=== PATIENT | male | born 1960 | race Caucasian/White ===

== ENCOUNTER 2025-05-19 13:54 | Emergency (ER) | payer OTHER, SELFPAY ==
[2025-05-19 14:01] VITALS: BP 114/72; PULSE 99; TEMP 36.5; O2SAT 97; BMI 33.9
--- NOTE | 2025-05-19 14:06 | ECG_ITS ---
[employer] Test Date: 2025-05-19 Pat Name: Yahir Sidhu Department: Room: Gender: Male Neurology Manager: : 1960 Requested By: Pilar Flanagan Order Number: [id number] Springer MD: Wolf Herrera M.D. Measurements Intervals [place] Rate: 108 P: 0 IA: 171 QRS: -65 QRSD: 116 T: 44 QT: 384 QTc: 517 Interpretive Statements SINUS TACHYCARDIA INFERIOR MYOCARDIAL INFARCTION , PROBABLY OLD [40+ ms Q WAVE AND/OR ST/T ABNORMALITY IN II/aVF] ANTEROLATERAL MYOCARDIAL INFARCTION , OF INDETERMINATE AGE [40+ ms Q WAVE IN I/aVL/V3-V6] Compared to ECG 08/31/2015 20:54:41 Sinus rhythm no longer present First degree AV block no longer present Myocardial infarct finding still present Electronically Signed On 05-23-2025 09:11:55 CDT by Wolf Herrera M.D. [email or web address]
--- OUTSIDE RECORDS SUMMARY | 2025-05-19 14:06 | XMS_ITS | Clinical Summary ---
Author Organization [facility] Address [address] [place] [address] Phone Care Team Providers Care Intellectual Property Paralegal Name Role Phone Non-Staff, Physician Primary Care Provider Unava ilable Allergies Active Allergy Reactions Criticality Noted Date Comments Iodinated Contrast Media Anaphylaxis High 09/18/2014 Venom-Honey Bee Anaphylaxis High 09/18/2014 Medications lacosamide (VIMPAT) 100 mg tabletIndicatio ns:Seizure disorder (CMS/HCC) Take 1.5 Tablet (150 mg) by mouth 2 times daily. 90 Tablet 5 6 Active hydroCHLOROthia zide 25 mg tablet Take 1 Tablet (25 mg) by mouth daily. 30 Tablet 5 Active amLODIPine (NORVASC) 10 mg tablet Take 1 Tablet (10 mg) by mouth daily. 30 Tablet 5 Active aspirin (ECOTRIN EC) 81 mg Tablet, Delayed Release (E.C.) Take 1 Tablet (81 mg) by mouth daily. 30 Tablet 5 Active lisinopriL (PRINIVIL) 40 mg tablet Take 1 Tablet (40 mg) by mouth daily. 30 Tablet 5 Active atorvastatin (LIPITOR) 40 mg tablet Take 1 Tablet (40 mg) by mouth daily at bedtime. 30 Tablet 5 Active metoprolol tartrate (LOPRESSOR) 50 mg tablet Take 1 Tablet (50 mg) by mouth 2 times daily. 60 Tablet 5 Active prazosin (MINIPRESS) 2 mg capsule Take 2 Capsules (4 mg) by mouth 2 times daily. 120 Capsule 5 Active acetaminophen (TYLENOL) 500 mg tablet Take 1 Tablet (500 mg) by mouth every 6 hours as needed for Pain, Mild, Pain, Moderate or Temperature (See admin instructions). 100 Tablet 5 Active citalopram (CeleXA) 10 mg tablet Take 1 Tablet (10 mg) by mouth daily. 30 Tablet 5 Active Active Problems Problem Noted Date Diagnosed Date Acute left-sided weakness 02/18/2025 Hemorrhagic cerebrovascular accident (CVA) 02/18 Laboratory test 02/18/2025 Hypertensive crisis 02/18/2025 Benign hypertension 02/18/2025 Hypertensive urgency 02/17/2025 Basal ganglia hemorrhage 02/17/2025 GARRETT on CPAP 02/17/2025 Smoker 02/17/2025 TBI (traumatic brain injury)-1986 03/08/2016 Chronic pain syndrome 03/08/2016 GARRETT (obstructive sleep apnea)-on CPAP 03/08/2016 DDD (degenerative disc disease), cervical 2015 Severe obesity (BMI 35.0-39.9) with comorbidity 03/08/2016 Type 2 diabetes mellitus 03/08/2016 HTN (hypertension) 03/08/2016 History of GA (myocardial infarction) 03/08/2016 History of stroke 03/08/2016 Mixed hyperlipidemia 03/08/2016 Seizure disorder 01/26/2016 Intractable chronic post-traumatic headache 05/2016 Fibromyalgia 01/26/2016 Type 2 diabetes mellitus without complication Essential hypertension Encounters Date Type Department Care Team Description 05/14/2025 External Device Data [facility] ABSTRACTION Provider, Abstract 05/07/2025 External Device Data [facility] ABSTRACTION Provider, Abstract 04/23/2025 External Device Data [facility] ABSTRACTION Provider, Abstract 04/11/2025 External Device Data [facility] ABSTRACTION Provider, Abstract 03/26/2025 External Device Data [facility] ABSTRACTION Provider, Abstract 03/26/2025 External Device Data [facility] ABSTRACTION Provider, Abstract 03/19/2025 External Device Data [facility] ABSTRACTION Provider, Abstract 03/01/2025 Telephone [facility] [address] [place] [phone] Reena Hardy Referral Request (Spiritual Support-Stroke Pathway) 02/27/2025 Telephone [facility] 4[facility] Medical [address] [place] [address] Shawn Snow Spiritual Care (Left patient a voice mail. ) 02/25/2025 Orders Only [facility] Neurosurgery [address] [place] [phone] Pedro Luis Ceja MD Traumatic brain injury with loss of consciousness, sequela (Primary Dx); Basal ganglia hemorrhage (CMS/HCC) 02/22/2025 4:09 PM CDT - 02/26/2025 9:45 AM CDT Hospital Encounter [facility] [address] [place] [phone] Samuel Woodard, Moses Blackmon MD Hemorrhagic cerebrovascular accident (CVA) (CMS/HCC) Discharge Disposition: Left Against Medical Advice 02/19/2025 External Device Data [facility] ABSTRACTION Provider, Abstract 02/19/2025 External Device Data [facility] ABSTRACTION Provider, Abstract 02/19/2025 External Device Data [facility] ABSTRACTION Provider, Abstract 02/18/2025 Travel 02/17/2025 6:57 PM CDT - 02/22/2025 3:46 PM CDT Hospital Encounter [facility] 6[facility] Neurology [address] [place] [phone] Latisha Nicholas MD Anand, MD Gabriela Lugo Mehul M, MD Raavi, MD Antolin Sierra Hejab, MD Basal ganglia hemorrhage (CMS/HCC) Discharge Disposition: Rehab Facility IP from Last 3 Months Family History Medical History Relation Name Comments Cancer Brother 1 Cancer Brother 2 Diabetes Father Colon Cancer Mother Diabetes Mother Diabetes Paternal Grandfather Cancer Sister 1 Cancer Sister 2 Relation Name Status Comments Brother 1 Brother 2 Alive Father Mother Paternal Grandfather Sister 1 Alive Sister 2 Alive Social History Tobacco Use Types Packs/Day Years Used Date Smoking Tobacco: Never Smokeless Tobacco: Never Tobacco Cessation:Counseling Given: Not Answered Alcohol Use Standard Drinks/Week Comments Yes 2 (1 standard drink = 0.6 oz pur e alcohol) Feeling Safe Answer Date Recorded Are you in a relationship wi th someone who hurts you emotionally and/or physically? No 02/22/2025 Food Insecurity Answer Date Recorded Patient needs follow up regardin 03/19/2025 Transportation Needs Answer Date Record ed Patient needs follow up regardin 03/19/2025 Housing Stability Answer Date Recorded Social/Environmental Concerns No concerns Utility Needs Answer Date Recorded Patient needs follow up regardin 03/19/2025 Sex and Gender Information Value Date Recorded Sex Assigned at Not on file Legal Sex Male 5:18 AM [employer] Gender Identity Not on file Sexual Orientation Not on file Last Filed Vital Signs Vital Sign Reading Time Taken Comments Blood Pressure 148/84 02/25/2025 9:03 PM CDT Pulse 66 02/25/2025 9:03 PM CDT Temperature 36.6 C (97.9 F) 02/25/2025 12:21 PM CDT Respiratory Rate 18 02/25/2025 12:2 1 PM CDT Oxygen Saturation 98% 02/25/2025 12: 21 PM CDT Inhaled Oxygen Concentration - - Weight 128.1 kg (282 lb 6.4 oz) 02/22/2025 4:25 PM CDT Height 182.9 cm (6') 02/22/2025 4:25 PM CDT Body Mass Index 38.3 02/22/2025 4:25 PM CDT Plan of Treatment Health Maintenance Due Date Last Done Comments DIABETES ANNUAL FOOT EXAM 1980 DIABETES MICROALBUMIN ANNUAL SCREEN 1980 FIT-DNA Q 3 years 2007 FIT/FOBT Q 1 year 2007 Flex Sig/CT Colonography Q 5 years 2007 COLORECTAL SCREENING 09/25/2019 09/25/2014 Colorectal Cancer Screening 09/25/2019 RSV VACCINE (60+ or ) (1 - Risk 60-74 years 1-dose series) 2022 INFLUENZA VACCINE (#1) 2024 09/26/2023, 2020 DIABETES HBA1C Q 6 MONTHS 08/20/2025 02/17/2025 DIABETES ANNUAL RETINAL EXAM 10/04/2025 10/04/2024 LDL CHOLESTEROL ANNUAL 02/18/2026 02/18/2025 DTAP/TDAP/TD VACCINES (5 - T d or Tdap) 07/17/2034 07/17/2024, 07/22/2009, 06/30/2009, Additional history exists ZOSTER VACCINE Completed 09/26/2023, 06/28/2022 Procedures Procedure Name Priority Date/Time Associated Diagnosis Comments BASIC METABOLIC PANEL Routine 02/25/2025 4:35 AM CDT COMPREHENSIVE METABOLIC PANEL Routine 02/23/2025 5:00 AM CDT CBC WITH DIFFERENTIAL Routine 02/23/2025 5:00 AM CDT RT ASSESS AND TREAT Routine 02/22/2025 4 :18 PM CDT XR SHOULDER 2+ VW LEFT Pending Discharge 02/21/2025 4:11 PM CDT XR HIP 2 OR 3 VIEWS LT Pending Discharge 02/21/2025 4:11 PM CDT CBC WITH DIFFERENTIAL Routine 02/20/2025 8:39 AM CDT POC GLUCOSE Routine 02/19/2025 11:57 AM CDT POC GLUCOSE Routine 02/19/2025 7:41 AM CDT BASIC METABOLIC PANEL Routine 02/19/2025 4:52 AM CDT CBC WITH DIFFERENTIAL Routine 02/19/2025 4:52 AM CDT POC GLUCOSE Routine 02/19/2025 4:05 AM CDT POC GLUCOSE Routine 02/18/2025 7:54 PM CDT POC GLUCOSE Routine 02/18/2025 4:18 PM CDT POC GLUCOSE Routine 02/18/2025 11:25 AM CDT POC GLUCOSE Routine 02/18/2025 8:[address] HEAD WO CONTRAST Stat 02/18/2025 8 :04 AM CDT LIPID PANEL Routine 02/18/2025 4:21 AM CDT BASIC METABOLIC PANEL Routine 02/18/2025 4:21 AM CDT CBC WITH DIFFERENTIAL Routine 02/18/2025 4:21 AM CDT POC GLUCOSE Routine 02/18/2025 4:19 AM CDT POC GLUCOSE Routine 02/18/2025 12:[address] HEAD WO CONTRAST Routine 02/18/2025 1 2:15 AM CDT DRUG SCREEN, URINE Routine 02/17/2025 9: 33 PM CDT VERIFICATION BLOOD GROUP Stat 02/17/2025 9:10 PM CDT Laboratory test POC GLUCOSE Routine 02/17/2025 8:10 PM CDT EKG 12-LEAD Stat 02/17/2025 7:45 PM CDT CTA HEAD AND NECK W AND/OR WO CONTRAST Stat 02/17/2025 7:28 PM CDT TYPE AND SCREEN Stat 02/17/2025 7:27 PM CDT HEMOGLOBIN A1C Routine 02/17/2025 7:09 PM CDT PTT Stat 02/17/2025 7:09 PM CDT PROTIME-INR Stat 02/17/2025 7:09 PM CDT COMPREHENSIVE METABOLIC PANEL Stat 02/17/2025 7:09 PM CDT CBC WITH DIFFERENTIAL Stat 02/17/2025 7:09 PM CDT CRITICAL CARE Routine 02/17/2025 6:55 PM CDT from Last 3 Months Results * (ABNORMAL) BASIC METABOLIC PANEL (02/25/2025 4:35 AM CDT) Only the most recent of3 resultswithin the time period is included. SODIUM 142 136 - 145 mmol/L 02/25/2025 8:[address] [facility] POTASSIUM 3.7 3.4 - 4.5 mmol/L 02/25/2025 8:41 AM [facility] CHLORIDE 107 98 - 107 mmol/L 02/25/2025 8:41 AM [facility] CO2 26 22 - 29 mmol/L 02/25/2025 8:41 AM [facility] CALCIUM 8.9 8.6 - 10.0 mg/dL 02/25/2025 8:41 AM [facility] BUN 26(H) 8 - 23 mg/dL 02/25/2025 8:41 AM [facility] CREATININE 1.25(H) 0.67 - 1.17 mg/dL 02/25/2025 8:41 AM [facility] GLUCOSE 115(H) 74 - 99 mg/dL 02/25/2025 8:41 AM [facility] GFR >60 >=60 mL/min/1.7 3 sq meter 02/25/2025 8:41 AM [facility] Comment:eGFR calculated with 2020 CKD-EPI equation. Vegetarian diet, extremely high or low muscle mass, and may affect results. Cystatin C with Glomerular Filtration Rate is a suitable alternative for these patients. ANION GAP 9 9 - 20 mmol/L 02/25/2025 8:41 AM [facility] Blood BLOOD SPECIMEN / Unknown Venipuncture / Unknown 02/25/2025 4:35 AM CDT 02/25/2025 8:07 AM CDT us Moses Baker Jr., MD CHEMISTRY ORDERAB LES Final Result [facility] CLIA #[id number] [address] [place] [address] * (ABNORMAL) CBC WITH DIFFERENTIAL (02/23/2025 5:00 AM CDT) Only the most recent of5 resultswithin the time period is included. WBC 10.9(H) 4.8 - 10.8 K/uL 02/23/2025 9:04 AM CDT [facility] RBC 5.06 4.60 - 6.20 M/uL 02/23/2025 9:04 AM CDT [facility] HEMOGLOBIN 14.9 14.0 - 18.0 g/dL 02/23/2025 9:04 AM CDT [facility] HEMATOCRIT 45.0 41.0 - 53.0 % 02/23/2025 9:04 AM CDT [facility] MCV 88.9 84.0 - 103.0 fL 02/23/2025 9:04 AM CDT [facility] MCH 29.4 27.0 - 34.0 pg 02/23/2025 9:04 AM CDT [facility] MCHC 33.1 30.0 - 35.0 g/dL 02/23/2025 9:04 AM CDT [facility] RDW 13.2 11.0 - 14.5 % 02/23/2025 9:04 AM CDT [facility] RDW-STDEV 43.3 37.0 - 54.0 fL 02/23/2025 9:04 AM CDT [facility] PLATELETS 276 140 - 440 K/uL 02/23/2025 9:04 AM CDT [facility] MPV 10.7 8.9 - 12.8 fL 02/23/2025 9:04 AM CDT [facility] NEUTROPHILS 60 42 - 75 % 02/23/2025 9:04 AM T [facility] LYMPHOCYTES 27 24 - 44 % 02/23/2025 9:04 AM CDT [facility] MONOCYTES 9 2 - 10 % 02/23/2025 9:04 AM CDT [facility] EOSINOPHILS 3 0 - 7 % 02/23/2025 9:04 AM T [facility] BASOPHILS 1 0 - 1 % 02/23/2025 9:04 AM CDT [facility] IMMATURE GRANULOCYTES 0 0 - 2 % 02/23/2025 9:04 AM T [facility] NEUTROPHIL ABSOLUTE 6.51 2.00 - 8.00 K/uL 02/23/2025 9:04 AM T [facility] LYMPHOCYTE ABSOLUTE 2.92 1.20 - 4.00 K/uL 02/23/2025 9:04 AM T [facility] MONOCYTE ABSOLUTE 0.98(H) 0.10 - 0.60 K/uL 02/23/2025 9:04 AM T [facility] EOSINOPHIL ABSOLUTE 0.34 0.00 - 0.70 K/uL 02/23/2025 9:04 AM T [facility] BASOPHILS ABSOLUTE 0.13 0.00 - 0.20 K/uL 02/23/2025 9:04 AM T [facility] IMMATURE GRANULOCYTES ABSOLUTE 0.04 0.00 - 0.10 K/uL 02/23/2025 9:04 AM [facility] Blood Venipuncture / Unknown 02/23/2025 5:00 AM CDT 02/23/2025 8:55 AM CDT us Malu Hernandez ANP HEMATOLOGY ORDERABLES Lucita rosenberg Result [facility] CLIA # [id number] [address] [address] [place] [address] * (ABNORMAL) COMPREHENSIVE METABOLIC PANEL (02/23/2025 5:00 AM [facility]) Only the most recent of2 resultswithin the time period is included. [facility] SODIUM 137 136 - 145 mmol/L 02/23/2025 9:23 AM [facility] POTASSIUM 3.7 3.5 - 5.1 mmol/L 02/23/2025 9:23 AM [facility] CHLORIDE 104 98 - 107 mmol/L 02/23/2025 9:23 AM [facility] CO2 21(L) 22 - 29 mmol/L 02/23/2025 9:23 AM [facility] CALCIUM 9.0 8.8 - 10.2 mg/dL 02/23/2025 9:23 AM [facility] BUN 39(H) 8 - 23 mg/dL 02/23/2025 9:23 AM [facility] CREATININE 1.44(H) 0.67 - 1.17 mg/dL 02/23/2025 9:23 AM [facility] GLUCOSE 125(H) 74 - 99 mg/dL 02/23/2025 9:23 AM [facility] TOTAL PROTEIN 6.7 6.4 - 8.3 g/dL 02/23/2025 9:23 AM [facility] ALBUMIN 3.8 3.5 - 5.2 g/dL 02/23/2025 9:23 AM [facility] BILIRUBIN TOTAL 0.3 0.2 - 1.0 mg/dL 02/23/2025 9:23 AM [facility] ALKALINE PHOSPHATASE 112 40 - 129 U/L 02/23/2025 9:23 AM [facility] AST 12 10 - 50 U/L 02/23/2025 9:23 AM [facility] ALT 16 <=50 U/L 02/23/2025 9:23 AM [facility] GFR 55(L) >=60 mL/min/1. 73 sq meter 02/23/2025 9:23 AM [facility] Comment:eGFR calculated with 2020 CKD-EPI equation. Vegetarian diet, extremely high or low muscle mass, and may affect results. Cystatin C with Glomerular Filtration Rate is a suitable alternative for these patients. ANION GAP 12 9 - 20 mmol/L 02/23/2025 9:23 AM CDT [facility] Blood Venipuncture / Unknown 02/23/2025 5:00 AM CDT 02/23/2025 8:55 AM CDT us Malu Hernandez ANP CHEMISTRY ORDERABLES Final Result [facility] CLIA # [id number] [address] [place] [id number] * XR SHOULDER 2+ VW LEFT (02/21/2025 4:11 PM CDT) Anatomical Region Laterality Modality Upper Extremity Computed Radiogr aphy 02/21/2025 4:11 PM CDT Impressions 02/21/2025 4:31 PM CDT IMPRESSION: Negative for an acute bony abnormality. Narrative 02/21/2025 4:31 PM CDT EXAM: XR SHOULDER 2+ VW LEFT DATE/TIME OF EXAM: 02/21/2025 4:11 PM REASON FOR EXAM: Fall DIAGNOSIS: Hemorrhagic cerebrovascular accident (CVA) (CMS/HCC); Acute left-sided weakness; Laboratory test; Benign hypertension COMPARISON: None. FINDINGS: No evidence of a fracture, dislocation, or acute joint space abnormality. The acromioclavicular and coracoclavicular distances appear anatomic. No significant arthrosis radiographically. Procedure Note Yo Wooten MD - 02/21/2025 EXAM: XR SHOULDER 2+ VW LEFT DATE/TIME OF EXAM: 02/21/2025 4:11 PM REASON FOR EXAM: Fall DIAGNOSIS: Hemorrhagic cerebrovascular accident (CVA) (CMS/HCC); Acute left-sided weakness; Laboratory test; Benign hypertension COMPARISON: None. FINDINGS: No evidence of a fracture, dislocation, or acute joint space abnormality. The acromioclavicular and coracoclavicular distances appear anatomic. No significant arthrosis radiographically. IMPRESSION: Negative for an acute bony abnormality. us Pedrito Dangelo MD DIAGNOSTIC IMAGING ORDERABLES Fi nal Result * XR HIP 2 OR 3 VIEWS LT (02/21/2025 4:11 PM CDT) Anatomical Region Laterality Modality Lower Extremity Left Computed Radiogr aphy 02/21/2025 4:11 PM CDT Impressions 02/21/2025 4:30 PM CDT IMPRESSION: Negative for an acute bony abnormality. Narrative 02/21/2025 4:30 PM CDT EXAM: XR HIP 2 OR 3 VIEWS LT DATE/TIME OF EXAM: 02/21/2025 4:11 PM REASON FOR EXAM: Fall DIAGNOSIS: Hemorrhagic cerebrovascular accident (CVA) (CMS/HCC); Acute left-sided weakness; Laboratory test; Benign hypertension COMPARISON: None FINDINGS: No radiographic evidence of an acute fracture, subluxation, dislocation, or destructive osseous lesion. Relatively mild left hip osteoarthritis with no significant joint space narrowing. The femoral head is normal in contour. Soft tissues are grossly unremarkable. No suspicious radiodense foreign bodies identified. Procedure Note Yo Wooten MD - 02/21/2025 EXAM: XR HIP 2 OR 3 VIEWS LT DATE/TIME OF EXAM: 02/21/2025 4:11 PM REASON FOR EXAM: Fall DIAGNOSIS: Hemorrhagic cerebrovascular accident (CVA) (CMS/HCC); Acute left-sided weakness; Laboratory test; Benign hypertension COMPARISON: None FINDINGS: No radiographic evidence of an acute fracture, subluxation, dislocation, or destructive osseous lesion. Relatively mild left hip osteoarthritis with no significant joint space narrowing. The femoral head is normal in contour. Soft tissues are grossly unremarkable. No suspicious radiodense foreign bodies identified. IMPRESSION: Negative for an acute bony abnormality. us Pedrito Dangelo MD DIAGNOSTIC IMAGING ORDERABLES Fi nal Result * (ABNORMAL) POC GLUCOSE (02/19/2025 11:57 AM CDT) Only the most recent of10 resultswithin the time period is included. GLUCOSE POC 107(H) 74 - 99 mg/dL 02/19/2025 11:57 AM CDT [facility] SPECIMEN SOURCE, GLUCOSE POC Capillary 02/19/2025 11:57 AM CDT [facility] Blood, whole 02/19/2025 11:5 7 AM CDT 02/19/2025 12:44 PM CDT Mariela Rodriguez MD POINT OF CARE TESTING Final Res ult [facility] CLIA # [id number] [address] [place] [address] * CT HEAD WO CONTRAST (02/18/2025 8:04 AM CDT) Only the most recent of2 resultswithin the time period is included. Anatomical Region Laterality Modality Head Computed Tomogra phy 02/18/2025 7:53 AM CDT Impressions 02/18/2025 8:28 AM CDT IMPRESSION: No interval detrimental change. Narrative 02/18/2025 8:28 AM CDT EXAM: CT HEAD WO CONTRAST DATE/TIME OF EXAM: 02/18/2025 8:04 AM REASON FOR STUDY: Mental status change, unknown cause DIAGNOSIS: Hemorrhagic cerebrovascular accident (CVA) (CMS/HCC); Acute left-sided weakness; Laboratory test; Benign hypertension COMPARISON: Same-day TECHNIQUE: CT head performed without contrast. FINDINGS: Similar appearance of the right frontal parenchymal hemorrhage centered in the right lentiform nucleus compared to prior study. Similar appearing locoregional mass effect and mild vasogenic edema. No midline shift or hydrocephalus. Procedure Note Kayla Lozada MD - 02/18/2025 EXAM: CT HEAD WO CONTRAST DATE/TIME OF EXAM: 02/18/2025 8:04 AM REASON FOR STUDY: Mental status change, unknown cause DIAGNOSIS: Hemorrhagic cerebrovascular accident (CVA) (CMS/HCC); Acute left-sided weakness; Laboratory test; Benign hypertension COMPARISON: Same-day TECHNIQUE: CT head performed without contrast. FINDINGS: Similar appearance of the right frontal parenchymal hemorrhage centered in the right lentiform nucleus compared to prior study. Similar appearing locoregional mass effect and mild vasogenic edema. No midline shift or hydrocephalus. IMPRESSION: No interval detrimental change. us Olvin Ochoa MD CT ORDERABLES Final Result * (ABNORMAL) LIPID PANEL (02/18/2025 4:21 AM CDT) CHOLESTEROL 167 <200 mg/dL 02/18/2025 10:47 AM CDT [facility] TRIGLYCERIDE 93 <150 mg/dL 02/18/2025 10:47 AM CDT [facility] HDL 32(L) 40 - 59 mg/dL 02/18/2025 10:47 AM T [facility] LDL CALCULATED 116(H) <100 mg/dL 02/18/2025 10:47 AM T [facility] NON-HDL CHOLESTEROL 135(H) <130 mg/dL 02/18/2025 10:47 AM T [facility] Blood Venipuncture / Unknown 02/18/2025 4:21 AM CDT 02/18/2025 4:30 AM CDT Narrative [facility] - 02/18/2025 10:47 AM CDT TOTAL CHOLESTEROL mg/dL Desirable <200 Borderline high 200-239 High >=240 TRIGLYCERIDES mg/dL Normal <150 Borderline high 150-199 High 200-499 Very high >=500 HDL CHOLESTEROL mg/dL Low <40 Normal 40-59 Desirable >=60 NON HDL CHOLESTEROL mg/dL Optimal <130 Near Optimal 130-159 Borderline High 160-189 Very High >=190 CALCULATED LDL mg/dL LDL <70, OPTIMAL if have Atherosclerotic cardiovascular disease (ASCVD) or intermediate or higher (>7.5%) 10 year risk of ASCVD including most adults with diabetes. LDL <100, Optimal in adult patients with low (<7.5%) 10 year ASCVD risk LDL 100-160, Suboptimal LDL >160, High LDL >190, Very high LDL calculated using the Friedewald equation. ATPIII Guidelines Reference Ranges for Lipid Panels (NCEP/AMA) . us Olvin Ochoa MD CHEMISTRY ORDERABLES Final Resu lt [facility] CLIA # [id number] [facility] [address] [place] [address] * (ABNORMAL) DRUG SCREEN, URINE (02/17/2025 9:33 PM CDT) [facility] AMPHETAMINE QUAL, URINE Negative Negative 02/17/2025 10:30 PM CDT [facility] BARBITURATE QUAL, URINE Negative Negative 02/17/2025 10:30 PM CDT [facility] BENZODIAZEPINE QUAL, URINE Negative Negative 02/17/2025 10:30 PM CDT [facility] COCAINE QUAL URINE Negative Negative 02/17/2025 10:30 PM CDT [facility] OPIATE QUAL, URINE Negative Negative 02/17/2025 10:30 PM CDT [facility] CANNABINOIDS QUAL, URINE Presumptive Positive(A) Negative 02/17/2025 10:30 PM CDT [facility] OXYCODONE QUAL, URINE Negative Negative 02/17/2025 10:30 PM CDT [facility] METHADONE QUAL, URINE Negative Negative 02/17/2025 10:30 PM CDT [facility] FENTANYL QUAL, URINE Negative Negative 02/17/2025 10:30 PM CDT [facility] CREATININE, URINE 30.9(L) 40.0 - 278.0 mg/dL 02/17/2025 10:30 PM CDT [facility] Comment:Reference Range vari es with fluid intake and diet. Urine URINE SPECIMEN OBTAINED BY CLEAN CATCH PROCEDURE / Unknown Collection / Unknown 02/17/2025 9:33 PM CDT 02/17/2025 9:46 PM CDT Narrative [facility] - 02/17/2025 10:30 PM CDT This test is a qualitative screen. The presumptive positive results should not be used for legal purposes. If confirmation of results is desired, the lab must be contacted without delay. Drug Ref. Range Screening Threshold Amphetamines Negative 500 ng/mL Barbiturates Negative 200 ng/mL Benzodiazepines Negative 100 ng/mL Cannabinoids Negative 50 ng/mL Cocaine Metabolite Negative 300 ng/mL Opiate Negative 300 ng/mL Oxycodone Negative 100 ng/mL Methadone Negative 300 ng/mL Fentanyl Negative 5 ng/mL Amanda Chaves NP URINE ORDERABLES Final Result Performing Organization Address [facility]/ZIP Co de Phone Number [facility] CLIA # [id number] [facility] [place] [address] * VERIFICATION BLOOD GROUP (02/17/2025 9:10 PM CDT) ABO GROUP O 02/17/2025 10:[address] [facility] RH (D) TYPE Negative 02/17/2025 10:[address] [facility] Blood Venipuncture / Unknown 02/17/2025 9:10 PM CDT 02/17/2025 9:23 PM CDT Protocol [facility] Gregoria BARNES BLOOD B[facility] ORDERABLES Final Result Performing Organization Address [facility] Co de Phone Number [id number] [address] [place] [address], * EKG 12-LEAD (02/17/2025 7:45 PM CDT) 02/17/2025 7:45 PM CDT Narrative INTERFACE SYSTEM - 02/18/2025 6:53 [place] [address] Test Date: 2025-02-17 Pat Name: INDIGO RODRIGUEZ Department: 11 Room: Gender: Director Of Cath Lab: [id number] : 1960 Requested By: Order Number: [id number] Gian MD: Haley Sandoval Measurements Intervals [place] Rate: 106 P: 44 IA: 186 QRS: 15 QRSD: 100 T: 89 QT: 362 QTc: 480 Interpretive Statements Sinus tachycardia Possible Left atrial enlargement Minimal voltage criteria for LVH, may be normal variant ( Luke product ) Nonspecific T wave abnormality Abnormal ECG Electronically Signed On 02-18-2025 6:53:55 CDT by Haley Sandoval Procedure Note Provider, Historical - 02/18/2025 [facility] [address] [place] [address] Test Date: 2025-02-17 Pat Name: INDIGO RODRIGUEZ Department: 11 Room: Gender: Director Of Cath Lab: [id number] : 1960 Requested By: Order Number: [id number] Reading MD: Haley Sandoval Measurements Intervals [place] Rate: 106 P: 44 IA: 186 QRS: 15 QRSD: 100 T: 89 QT: 362 QTc: 480 Interpretive Statements Sinus tachycardia Possible Left atrial enlargement Minimal voltage criteria for LVH, may be normal variant ( Luke product) Nonspecific T wave abnormality Abnormal ECG Electronically Signed On 02-18-2025 6:53:55 CDT by Haley Sandoval us Latisha Nicholas MD ECG ORDERABLES Final Result INTERFACE SYSTEM Refer to clinic/hospital department * CTA HEAD AND NECK W AND/OR WO CONTRAST (02/17/2025 7:28 PM CDT) Anatomical Region Laterality Modality Head Computed Tomogra phy 02/17/2025 7:09 PM CDT Impressions 02/18/2025 6:26 AM CDT IMPRESSION: 1. Right frontal parenchymal hemorrhage centered in the right lentiform nucleus, measuring 4.6 x 2.3 x 3.4 cm. Mild surrounding vasogenic edema. No midline shift or hydrocephalus. Recommend follow-up brain MRI with and without contrast to assess for underlying lesion. 2. No evidence of hemodynamically significant stenosis within the cervical internal carotid arteries based on NASCET criteria. 3. No large vessel intracranial arterial occlusion. No significant stenosis or occlusion of the major intracranial arterial vasculature. Narrative 02/18/2025 6:26 AM CDT EXAM: CTA HEAD AND NECK W AND/OR WO CONTRAST DATE/TIME OF EXAM: 02/17/2025 7:28 PM REASON FOR STUDY: Neuro deficit, acute, stroke suspected DIAGNOSIS: Hemorrhagic cerebrovascular accident (CVA) (CMS/HCC); Acute left-sided weakness COMPARISON: TECHNIQUE: CT performed of the head without contrast. CT angiography was performed of the head and neck following the administration of intravenous contrast. Images were reformatted and 3-D MIP images were provided. CT perfusion performed after the administration of intravenous contrast. CONTRAST: IOPAMIDOL 61 % INTRAVENOUS SOLUTION (MULTI-DOSE BULK PACK) Given:225 mL FINDINGS: CT head: Right frontal parenchymal hemorrhage centered in the right lentiform nucleus, measuring 4.6 x 2.3 x 3.4 cm. Mild surrounding vasogenic edema. Locoregional mass effect. No midline shift or hydrocephalus. No mastoid effusion. Mild left maxillary sinus mucosal thickening. No paranasal sinus fluid level. No calvarial fracture. No sizable scalp hematoma. CTA neck: AORTIC ARCH ATHEROSCLEROSIS GRADE: none AORTIC ARCH: three vessel SUBCLAVIAN ARTERIES: No significant stenosis or occlusion. CERVICAL VERTEBRAL ARTERIES: Patent extracranial segments. No dissection. RIGHT CCA AND CERVICAL ICA: Mild atherosclerotic disease. No stenosis or occlusion. No dissection. LEFT CCA AND CERVICAL ICA: Mild atherosclerotic disease. No stenosis or occlusion. No dissection. CT angiography head: Anterior Circulation: Mild atherosclerotic disease in the parasellar ICAs bilaterally. No significant stenosis or occlusion. No aneurysm. No evidence of active bleeding in the region of parenchymal hemorrhage. Posterior Circulation: Atherosclerotic disease of the intradural vertebral arteries bilaterally without occlusion. No significant stenosis or occlusion. No aneurysm. Expected enhancement major dural venous sinuses. Other: Soft Tissue Neck: No cervical adenopathy. Cervical Spine: No acute fracture. Lung Apices: The included lung apices appear clear. Poor dentition with numerous dental cavities and periapical lucencies. Procedure Note Kayla Lozada MD - 02/18/2025 EXAM: CTA HEAD AND NECK W AND/OR WO CONTRAST DATE/TIME OF EXAM: 02/17/2025 7:28 PM REASON FOR STUDY: Neuro deficit, acute, stroke suspected DIAGNOSIS: Hemorrhagic cerebrovascular accident (CVA) (CMS/HCC); Acute left-sided weakness COMPARISON: TECHNIQUE: CT performed of the head without contrast. CT angiography was performed of the head and neck following the administration of intravenous contrast. Images were reformatted and 3-D MIP images were provided. CT perfusion performed after the administration of intravenous contrast. CONTRAST: IOPAMIDOL 61 % INTRAVENOUS SOLUTION (MULTI-DOSE BULK PACK) Given:225 mL FINDINGS: CT head: Right frontal parenchymal hemorrhage centered in the right lentiform nucleus, measuring 4.6 x 2.3 x 3.4 cm. Mild surrounding vasogenic edema. Locoregional mass effect. No midline shift or hydrocephalus. No mastoid effusion. Mild left maxillary sinus mucosal thickening. No paranasal sinus fluid level. No calvarial fracture. No sizable scalp hematoma. CTA neck: AORTIC ARCH ATHEROSCLEROSIS GRADE: none AORTIC ARCH: three vessel SUBCLAVIAN ARTERIES: No significant stenosis or occlusion. CERVICAL VERTEBRAL ARTERIES: Patent extracranial segments. No dissection. RIGHT CCA AND CERVICAL ICA: Mild atherosclerotic disease. No stenosis or occlusion. No dissection. LEFT CCA AND CERVICAL ICA: Mild atherosclerotic disease. No stenosis or occlusion. No dissection. CT angiography head: Anterior Circulation: Mild atherosclerotic disease in the parasellar ICAs bilaterally. No significant stenosis or occlusion. No aneurysm. No evidence of active bleeding in the region of parenchymal hemorrhage. Posterior Circulation: Atherosclerotic disease of the intradural vertebral arteries bilaterally without occlusion. No significant stenosis or occlusion. No aneurysm. Expected enhancement major dural venous sinuses. Other: Soft Tissue Neck: No cervical adenopathy. Cervical Spine: No acute fracture. Lung Apices: The included lung apices appear clear. Poor dentition with numerous dental cavities and periapical lucencies. IMPRESSION: 1. Right frontal parenchymal hemorrhage centered in the right lentiform nucleus, measuring 4.6 x 2.3 x 3.4 cm. Mild surrounding vasogenic edema. No midline shift or hydrocephalus. Recommend follow-up brain MRI with and without contrast to assess for underlying lesion. 2. No evidence of hemodynamically significant stenosis within the cervical internal carotid arteries based on NASCET criteria. 3. No large vessel intracranial arterial occlusion. No significant stenosis or occlusion of the major intracranial arterial vasculature. Latisha Nicholas MD CT ORDERABLES Final Result * TYPE AND SCREEN (02/17/2025 7:27 PM CDT) ABO GROUP O 02/17/2025 8:[address] [facility] [employer] SERVICES -- [facility] (D) TYPE Negative 02/17/2025 8:[address] [facility] [place] ANTIBODY SCREEN Negative 02/17/2025 8:[address] [facility] [place] Blood Venipuncture / Unknown 02/17/2025 7:27 PM CDT 02/17/2025 7:35 PM CDT Latisha Nicholas MD BLOOD BANK ORDERABLES Edited Re sult - Final [facility] CLIA#[id number] [address] [place] [address], * PTT (02/17/2025 7:09 PM CDT) PTT 29.0 24.8 - 37.2 seconds 02/17/2025 7:57 PM CDT [facility] [place] Blood Venipuncture / Unknown 02/17/2025 7:09 PM CDT 02/17/2025 7:[address] [facility] - 02/17/2025 7:57 PM CDT Therapeutic Range: Hi-level PE/DVT heparin protocol 80.1 - 95.0 sec Lo-level PE/DVT heparin protocol 70.1 - 85.0 sec Cardiac Heparin Protocol 70.1 - 100.0 sec Latisha Nicholas MD HEMATOLOGY ORDERABLES Final Res ult [facility] CLIA # [id number] [address] [facility] [place] [address] * PROTIME-INR (02/17/2025 7:09 PM CDT) PROTIME 13.8 12.6 - 14.6 Seconds 02/17/2025 7:57 PM CDT [facility] INR 1.0 0.8 - 1.2 02/17/2025 7:57 PM CDT [facility] Blood Venipuncture / Unknown 02/17/2025 7:09 PM CDT 02/17/2025 7:39 PM CDT Narrative [facility] - 02/17/2025 7:57 PM CDT Expected Values for INR: DVT/PE Goal INR 2.5; range 2.0 - 3.0 Valve Replacement Tissue Goal INR 2.5; range 2.0 - 3.0 Valve Replacement Mechanical Goal INR 3.0; range 2.5 - 3.5 POST-GA Goal INR 2.5; range 2.0 - 3.0 or Goal INR 3.0; range 2.5 - 3.5 Atrial Fibrillation Goal INR 2.5; range 2.0 - 3.0 Ischemic Stroke Goal INR 2.5; range 2.0 - 3.0 us Latisha Nicholas MD HEMATOLOGY ORDERABLES Final Res ult Performing Organization Address [facility] Co de Phone Number [facility] CLIA # [id number] [address] [place] [address] * HEMOGLOBIN A1C (02/17/2025 7:09 PM CDT) HEMOGLOBIN A1C 5.5 <=5.6 % 02/18/2025 10:15 AM CDT [facility] EST. AVG GLUCOSE, A1C 111 mg/dL 02/18/2025 10:15 AM CDT [facility] Blood Venipuncture / Unknown 02/17/2025 7:09 PM CDT 02/17/2025 7:39 PM CDT Narrative [facility] - 02/18/2025 10:15 AM CDT HGB A1C INTERPRETATION NORMAL: <5.7% PRE-DIABETES: 5.7 - 6.4% DIABETES: 6.5% OR GREATER us Amanda Chaves NP CHEMISTRY ORDERABLES Final Resul t Performing Organization Address City/[facility]/ZIP Co de Phone Number [facility] CLIA # [id number] [address] [address] * Critical Care (02/17/2025 6:55 PM CDT) Latisha Friedman MD - 02/17/2025 6:55 PM CDT Latisha Nicholas MD 02/17/2025 8:18 PM Critical Care Performed by: Latisha Nicholas MD Authorized by: Latisha Nicholas MD Critical care provider statement: Critical care time (minutes): 35 Critical care time was exclusive of: Separately billable procedures and treating other patients and teaching time Critical care was necessary to treat or prevent imminent or life-threatening deterioration of the following conditions: 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 or 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 Critical care was time spent personally by me on the following activities: Obtaining history from patient or surrogate, interpretation of cardiac output measurements, examination of patient, evaluation of patient's response to treatment, discussions with consultants, development of treatment plan with patient or surrogate, ordering and performing treatments and interventions, ordering and review of laboratory studies, ordering and review of radiographic studies, pulse oximetry, re-evaluation of patient's condition and review of old charts I assumed direction of critical care for this patient from another provider in my specialty: no Care discussed with: admitting provider Latisha Nicholas MD PROCEDURE/MINOR SURGICAL ORDERA BLES Final Result from Last 3 Months Insurance MEDICARE PART A HOSPITAL ONLY [facility] [employer] [facility] [employer] [facility] [employer] Advance Directives For more information, please contact: [phone] * Full Code (Latest Code Status on File) Date Activated Date Inactivated Comments 02/22/2025 4:18 PM 02/26/2025 4:55 PM * Full Code Date Activated Date Inactivated Comments 02/17/2025 8:21 PM 02/22/2025 4:09 PM Care Teams Intellectual Property Paralegal Relationship Specialty Start Date End Date Non-Staff, Physician NO ADDRESS ON FILE PCP - General 09/19/14
--- OUTSIDE RECORDS SUMMARY | 2025-05-19 14:06 | XMS_ITS | Encounter Summary ---
Author Organization [employer] Address 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
[2025-05-19 14:18] LABS: Glucose Point of Care 345 mg/dL (70-110)
--- NOTE | 2025-05-19 14:56 | CTR_ITS ---
PROCEDURE INFORMATION: Exam: CT Abdomen And Pelvis With Contrast Exam date and time: 05/19/2025 4:09 PM Age: 64 years old Clinical indication: Abdominal pain; Additional info: Pain, high pitched tinkle TECHNIQUE: Imaging protocol: Computed tomography of the abdomen and pelvis with contrast. Radiation optimization: All CT scans at this facility use at least one of these dose optimization techniques: automated exposure control; mA and/or kV adjustment per patient size (includes targeted exams where dose is matched to clinical indication); or iterative reconstruction. Contrast material: OMNI 350; Contrast volume: 100 ml; Contrast route: INTRAVENOUS (IV); COMPARISON: No relevant prior studies available. RADIATION DOSE METRICS: Total DLP (mGy-cm): 1038.74 FINDINGS: Esophagus: There is severe wall thickening of the visualized distal esophagus with trace paraesophageal fluid and fat stranding. Small hiatal hernia. Liver: Normal. No mass. Gallbladder and biliary ducts: Normal. No calcified stones. No ductal dilation. Pancreas: Normal. No ductal dilation. Spleen: Normal. No splenomegaly. Adrenal glands: Normal. No mass. Kidneys and ureters: 2.6 x 2 cm low-density lesion in the upper pole of the right kidney most consistent with a cyst. Small cyst in the left kidney. No hydronephrosis. Stomach and bowel: Unremarkable. No obstruction. No mucosal thickening. Appendix: No evidence of appendicitis. Intraperitoneal space: Small free fluid in the dependent pelvis which is nonspecific. Vasculature: Unremarkable. No abdominal aortic aneurysm. Lymph nodes: 9 mm in short axis left external iliac node. Shotty para-aortic lymph nodes are seen in the retroperitoneum measuring less than 1 cm short axis but somewhat increased in number. Urinary bladder: Diffuse bladder wall thickening. Reproductive: Unremarkable as visualized. Bones/joints: Unremarkable. No acute fracture. Soft tissues: Unremarkable. CT/CT abdomen pelvis w con* [id number] IMPRESSION: 1. Severe wall thickening of the visualized distal esophagus consistent with esophagitis. Paraesophageal stranding and trace fluid is seen which is likely reactive. Recommend follow-up CT or endoscopy to ensure resolution and to exclude an underlying mucosal lesion. 2. Small free fluid in the pelvis which is abnormal but nonspecific. COMMENTS: Consistent with the [employer]'s Incidental Findings Committee white paper (J Am Tiffanie Radiol 2018): Any incidental renal lesion less than 1 cm or classified as too small to characterize, or any incidental cystic renal lesion characterized as simple-appearing, is likely benign. No follow-up imaging is recommended for these lesions per consensus recommendations based on imaging criteria.
[2025-05-19 15:11] VITALS: BP 138/80; PULSE 87; O2SAT 99
--- NOTE | 2025-05-19 15:12 | ED_ITS ---
HPI - Nausea/Vomiting/Diarrhea 2 General: Chief complaint: Nausea/Vomiting/Diarrhea Stated complaint: n/v/f, irregular hr Time Seen by Provider: 05/19/25 14:49 History of Present Illness: Patient is a 64-year-old gentleman, presents to ED with 3 days of nausea, vomiting, and diarrhea. He states he is passing gas once in a while, mainly loose stools. He has not had recent antibiotics. No exposure to illness. Nausea, and vomiting has been ongoing. He does complain of diffuse abdominal pain. No previous abdominal surgeries. No colonoscopy in the past. Denies use of NSAIDs. No melena. No fevers. Associated nausea: Yes Associated symtoms: Reports nausea; Denies change in vision, chest pain, dysuria, headache(s) or palpitations Related Data Previous Rx's ?Medication ?Instructions ?Recorded cefdinir 300 mg capsule 300 mg PO BID 10 days #20 ca ps 05/19/25 ondansetron 4 mg disintegrating 4 mg PO Q8H PRN nausea and 05/19/25 tablet vomiting 4 days #10 tabs pantoprazole 40 mg tablet,delayed 40 mg PO DAILY #30 t abs 05/19/25 release Allergies Allergy/AdvReac Type Severity Reaction Status Date / Time bee venom protein (honey bee) Allergy Unknown Verified 05/19/25 14:11 Review of Systems 2 General: Reports: 10 or more systems reviewed and unremarkable except in HPI and below Const: Denies: fever(s) or chills Eyes: Denies: change in vision or blurry vision ENMT: Denies: throat pain or mouth pain Card: Denies: chest pain or palpitations Resp: Denies: dyspnea or productive cough GI: Reports: abdominal pain, nausea, vomiting and change in stool character : Reports: urinary urgency; Denies: flank pain, difficulty urinating, dysuria or urinary frequency Musc: Denies: neck pain, back pain, extremity pain or extremity swelling Neuro: Denies: headache(s) or numbness in extremities Endo: Denies: polyuria All/Imm: Denies: urticaria Physical Exam 2 Const: COMMON NORMALS: no acute distress and patient oriented x3 GENERAL APPEARANCE: cooperative HENMT: COMMON NORMALS: normocephalic and atraumatic HEAD & SCALP: n ormocephalic and atraumatic Eye: COMMON NORMALS: Equal, round and reactive pupils present and EOMs intact bilaterally PUPIL: Yes Equal, round and reactive pupils present Neck/C-Spine: COMMON NORMALS: no JVD Lymph: LYMPHATIC: no lymphadenopathy noted Chest: COMMONS NORMALS: normal inspection of the chest Resp: COMMON NORMALS: normal respiratory effort, No retractions and clear to auscultation bilaterally AUSCULTATION: clear to auscultation bilaterally Cardio: COMMON NORMALS: no JVD, regular rate and regular rhythm RATE: r egular rate RHYTHM: regular rhythm GI: PALPATION: Yes Tenderness to palpation present (GI) Details: LLQ and other (epigastrum) PERCUSSION: normal to percussion : COMMON NORMALS: Yes no CVA tenderness and Yes normal external exam B LADDER/KIDNEY EXAM: Yes no CVA tenderness Back/Pelvis: COMMON NORMALS: no CVA tenderness Extremity: COMMON NORMALS: normal to inspection, full ROM and capillary refill normal Neuro: COMMON NORMALS: patient oriented x3 and CN's II-XII intact bilaterally Psych: THOUGHT CONTENT: Yes Normal thought content present Course 2 Reevaluation(s): Reevaluation #1: N/V improved after Zofran Vital Signs: Vital signs: Vital Signs Temperature 97.7 F 05/19/25 14:01 Pulse Rate 79 05/19/25 16:00 Blood Pressure 126/73 05/19/25 16:00 Pulse Oximetry 95 05/19/25 16:00 Oxygen Delivery Me thod Room Air 05/19/25 16:00 MDM - Nausea/Vomiting/Diarrhea Medical Decision Making Discussed patient's CT results with patient at length. was present. Discussed follow-up, repeat CT, and repeat CMP. I suspect the total bili up to 1.8 is reactive in nature given the esophagitis and thickening. Patient also on reevaluation was trying to make himself vomit, which I educated patient discussed not to do that, especially with his esophagitis, and concern for Yessica-Cunningham tear Lab Data 05/19/25 15:04 05/19/25 15:04 Radiology Impressions Abdomen/Pelvis CT 05/19/25 14:56 IMPRESSION: 1. Severe wall thickening of the visualized distal esophagus consistent with esophagitis. Paraesophageal stranding and trace fluid is seen which is likely reactive. Recommend follow-up CT or endoscopy to ensure resolution and to exclude an underlying mucosal lesion. 2. Small free fluid in the pelvis which is abnormal but nonspecific. COMMENTS: Consistent with the [employer]'s Incidental Findings Committee white paper (J Am Tiffanie Radiol 2018): Any incidental renal lesion less than 1 cm or classified as too small to characterize, or any incidental cystic renal lesion characterized as simple-appearing, is likely benign. No follow-up imaging is recommended for these lesions per consensus recommendations based on imaging criteria. Laboratory Results WBC 9.85 10^3/uL (3.29-11.43) 05/19/25 15:04 RBC 5.52 10^6/uL (3.85-5.65) 05/19/25 15:04 Hgb 15.90 g/dL (11.27-16.99) 05/19/25 15:04 Hct 44.2 % (37-53) 05/19/25 15:04 MCV 80.1 fl (82-101) L 05/19/25 15:04 MCH 28.8 pg (27-33) 05/19/25 15:04 MCHC 36.0 g/dL (30-55) 05/19/25 15:04 RDW 13.3 % (12.1-15.1) 05/19/25 15:04 Plt Count 94 10^3/cmm (157-399) L 05/19/25 15:04 MPV 12.3 fL (7.4-10.4) H 05/19/25 15:04 Neut % (Auto) 87.9 % 05/19/25 15:04 Lymph % (Auto) 4.4 % 05/19/25 15:04 [place] % (Auto) 6.0 % 05/19/25 15:04 Eos % (Auto) 0.4 % 05/19/25 15:04 Baso % (Auto) 0.4 % 05/19/25 15:04 Neut # (Auto) 8.66 10^3/uL (1.8-7.7) H 05/19/25 15:04 Lymph # (Auto) 0.4 10^3/uL (0.8-4.8) L 05/19/25 15:04 [place] # (Auto) 0.6 10^3/uL (0.2-0.9) 05/19/25 15:04 Eos # (Auto) 0.0 10^3/uL (0.0-0.8) 05/19/25 15:04 Baso # (Auto) 0.0 10^3/uL (0.0-0.1) 05/19/25 15:04 Nucleated RBC % (auto) 0 % 05/19/25 15:04 Nucleated RBCs # 0.0 /100WBC 05/19/25 15:04 Sodium 130 mmol/L (136-145) L 05/19/25 15:04 Potassium 3.5 mmol/L (3.5-5.1) 05/19/25 15:04 Chloride 90 mmol/L (98-107) L 05/19/25 15:04 Carbon Dioxide 19 mmol/L (22-29) L 05/19/25 15:04 Anion Gap 24.5 (5-19) H 05/19/25 15:04 BUN 20 mg/dL (8-23) 05/19/25 15:04 Creatinine 0.9 mg/dL (0.7-1.2) 05/19/25 15:04 GFR Calculation 85.5 mL/min (90-130) L 05/19/25 15:04 Glucose 320 mg/dL (65-115) H 05/19/25 15:04 POC Glucose 345 mg/dL (70-110) H 05/19/25 14:16 Calculated Osmolality 285 mOsm/kg (285-295) 05/19/25 15:04 Calcium 9.5 mg/dL (8.5-10.5) 05/19/25 15:04 Magnesium 2.1 mg/dL (1.7-2.3) 05/19/25 15:04 Total Bilirubin 1.8 mg/dL (0.15-1.2) H 05/19/25 15:04 AST 38 U/L (0-40) 05/19/25 15:04 ALT 28 U/L (0-41) 05/19/25 15:04 Alkaline Phosphatase 82 U/L (40-130) 05/19/25 15:04 NT-Pro-B Natriuret Pep 654 pg/mL (0-125) H 05/19/25 15:04 Total Protein 7.8 g/dL (6.6-8.7) 05/19/25 15:04 Albumin 4.1 g/dL (3.5-5.2) 05/19/25 15:04 Globulin 3.7 g/dL (1.3-4.6) 05/19/25 15:04 Lipase 20 U/L (13-60) 05/19/25 15:04 TSH 5.44 uIU/mL (0.27-4.20) H 05/19/25 15:04 Urine Color [place] (Yellow) A 05/19/25 14:40 Urine Appearance Cloudy (CLEAR) A 05/19/25 14:40 Urine pH 5.5 (5-7) 05/19/25 14:40 Ur Specific [place] 1.031 (1.005-1.030) H 05/19/25 14:40 Urine Protein 3+ (Negative) A 05/19/25 14:40 Urine Glucose (UA) 2+ (Normal) H 05/19/25 14:40 Urine Ketones 2+ (Negative) H 05/19/25 14:40 Urine Blood 3+ (Negative) A 05/19/25 14:40 Urine Nitrate Negative (Negative) 05/19/25 14:40 Urine Bilirubin 1+ (Negative) H 05/19/25 14:40 Urine Urobilinogen 1.0 mg/dL (Negative) 05/19/25 14:40 Ur Leukocyte Esterase 2+ (Negative) A 05/19/25 14:40 Urine RBC 51-100 /hpf (0-2) H 05/19/25 14:40 Urine WBC >100 /hpf (0-5) H 05/19/25 14:40 Ur Squamous Epith Cells 0-5 /hpf (0-5) 05/19/25 14:40 Amorphous Sediment Not Reportable 05/19/25 14:40 Urine Bacteria 4+ /hpf (NONE) H 05/19/25 14:40 Hyaline Casts 18.61 /lpf 05/19/25 14:40 Urine Opiates Screen Negative ng/mL (Negative) 05/19/25 14:40 Ur Barbiturates Screen Negative ng/mL (Negative) 05/19/25 14:40 Ur Phencyclidine Scrn Negative ng/mL (Negative) 05/19/25 14:40 Ur Amphetamines Screen Negative ng/mL (Negative) 05/19/25 14:40 U Benzodiazepines Scrn Negative ng/mL (Negative) 05/19/25 14:40 Urine Cocaine Screen Negative ng/mL (Negative) 05/19/25 14:40 U Marijuana (THC) Screen Positive ng/mL (Negative) H 05/19/25 14:40 All radiology interpretation(s) finalized by discharge ED provider radiology interpretation(s): Severe wall thickening of the visualized distal esophagus consistent with esophagitis. Paraesophageal stranding and trace fluid is seen which is likely reactive. Discharge Plan Discharge Patient Disposition: Home Clinical Impression: Esophagitis, Elevated bilirubin Condition: Stable Prescriptions: New pantoprazole 40 mg tablet,delayed release (DR/EC) 40 mg PO DAILY Qty: 30 0RF ondansetron 4 mg tablet,disintegrating 4 mg PO Q8H PRN (Reason: nausea and vomiting) 4 Days Qty: 10 0RF cefdinir 300 mg capsule 300 mg PO BID 10 Days Qty: 20 0RF Discharge Orders: Discharge ED (Routine); Ordered 05/19/25 Ordered By: Gem Butt Discharge Diet: Clear Liquid Discharge Activity: Resume usual activity Patient Instructions: Full Liquid Diet, Clear Liquid Diet (ED), Esophagitis (ED), Patient Portal & Barry Instructions Activity Restrictions/Additional Instructions: You will need a follow-up CT with your doctor. Call your doctor tomorrow for follow-up and your CT can be scheduled in 1 month. Stay on a clear liquid diet for 48 hours. Directions are attached. You may then advance to a full liquid diet if you tolerate your clear liquid diet. Continue the full liquid diet for 48 hours. Liquid diet is a total of 4 days in order to calm down your esophagitis. I did send pantoprazole, cefdinir, and Zofran to the pharmacy. Urine culture will be pending. They will call you if cefdinir does not work on your urinary infection. Take a probiotic or active culture yogurt for antibiotics to avoid infectious diarrhea. No ibuprofen. Avoid NSAIDs which is also naproxen/Aleve. You will need a repeat labs with your primary care when you follow-up prior to your CT. Most likely this week would be best. Severe wall thickening of the visualized distal esophagus consistent with esophagitis. Paraesophageal stranding and trace fluid is seen which is likely reactive. This is your CT. Do not make yourself throw up and think you will feel better. You will have a laceration in your esophagus if you keep trying to make yourself throw up. This is very serious. Please return to ED for worsening abdominal pain, ongoing nausea, vomiting, and diarrhea. No stool was obtained during your stay, and therefore this was unable to be evaluated. Print Language: [place] Coding Level of Care Code ED Warp Dresser for Sofy Santiago
[2025-05-19 15:18] LABS: Basophils % 0.4 %; Eosinophils % 0.4 %; Hematocrit 44.2 % (37-53); Lymphocytes # 0.4 10^3/uL (0.8-4.8); Lymphocytes % 4.4 %; Mean Corpuscular Hemoglobin 28.8 pg (27-33); Mean Corpuscular Volume 80.1 fl (82-101); Mean Platelet Volume 12.3 fL (7.4-10.4); Monocytes # 0.6 10^3/uL (0.2-0.9); Neutrophils # 8.66 10^3/uL (1.8-7.7); Neutrophils % 87.9 %; Nucleated Red Blood Cells % 0 %; Platelet Count 94 10^3/cmm (157-399); Red Blood Count 5.52 10^6/uL (3.85-5.65); Red Cell Distribution Width 13.3 % (12.1-15.1); White Blood Count 9.85 10^3/uL (3.29-11.43)
[2025-05-19] MEDS: ondansetron 2 mg/ML SDV 2 mL 4 MG IVP (15:19)
[2025-05-19 15:20] LABS: Bilirubin Urine 1+ (Negative); Blood Urine 3+ (Negative); Glucose Urine UA 2+ (Normal); Ketones Urine 2+ (Negative); Leukocyte Esterase Urine 2+ (Negative); Nitrate Urine Negative (Negative); Protein Urine 3+ (Negative); Urine Appearance Cloudy (CLEAR); pH Urine 5.5 (5-7)
[2025-05-19 15:25] LABS: Add Urine Microscopic? YES; Bacteria Urine 4+ /hpf; Hyaline Casts Urine 18.61 /lpf; RBC Urine 51-100 /hpf (0-2); Squamous Epithelial Cell Urine 0-5 /hpf (0-5); WBC Urine >100 /hpf (0-5)
[2025-05-19 15:30] VITALS: BP 121/76; PULSE 82; O2SAT 97
[2025-05-19 15:35] LABS: Specific Gravity, Urine 1.031 (1.005-1.030); UA Slide Review UA Slide Review Perf; Urine Color Orange (Yellow)
[2025-05-19 15:36] LABS: Add Urine Culture? Yes
[2025-05-19 15:52] LABS: Alanine Aminotransferase 28 U/L (0-41); Albumin Level 4.1 g/dL (3.5-5.2); Alkaline Phosphatase 82 U/L (40-130); Anion Gap 24.5 (5-19); Aspartate Amino Transferase 38 U/L (0-40); Blood Urea Nitrogen 20 mg/dL (8-23); Calcium 9.5 mg/dL (8.5-10.5); Carbon Dioxide 19 mmol/L (22-29); Chloride 90 mmol/L (98-107); Globulin 3.7 g/dL (1.3-4.6); Glomerular Filtration Rate 85.5 mL/min (90-130); Glucose 320 mg/dL (65-115); Lipase 20 U/L (13-60); Magnesium 2.1 mg/dL (1.7-2.3); NT Pro B Type Natriuretic Pept 654 pg/mL (0-125); Osmolality Calculated 285 mOsm/kg (285-295); Potassium 3.5 mmol/L (3.5-5.1); Sodium 130 mmol/L (136-145); Thyroid Stimulating Hormone 5.44 uIU/mL (0.27-4.20); Total Bilirubin 1.8 mg/dL (0.15-1.2); Total Protein 7.8 g/dL (6.6-8.7)
[2025-05-19 16:00] VITALS: BP 126/73; PULSE 79; O2SAT 95
[2025-05-19] MEDS: iohexol 350 mg/mL 500 mL Btl (per mL) IV (16:11)
[2025-05-19] MEDS: sodium chloride 0.9% 1,000 ML 999 ML IV (16:19)
[2025-05-19 16:57] LABS: Amphetamines Screen Urine Negative (Negative); Barbiturates Screen Urine Negative (Negative); Benzodiazepines Screen Urine Negative (Negative); Cocaine Screen Urine Negative (Negative); Opiate Screen Urine Negative (Negative); PCP Screen Urine Negative (Negative); THC Screen Urine Positive (Negative)
[2025-05-19] MEDS: cefTRIAXone 1,000 mg SDV 1000 MG IVP (17:11)
[2025-05-19] MEDS: diphenhydrAMINE 50 mg/mL SDV 1mL 25 MG IVP (17:52)
[2025-05-19] MEDS: prochlorperazine 10 mg/2 mL Inj 5 MG IVP (17:53)
[2025-05-19 18:15] VITALS: BP 163/86; PULSE 82; O2SAT 97
== END 2025-05-19 18:17 | disposition home or self-care (01) ==
PROVIDERS: Emergency Medicine; Emergency Provider Physician Assistant
DX: K20.90 Esophagitis, unspecified without bleeding (principal); E80.7 Disorder of bilirubin metabolism, unspecified
CPT/HCPCS: 36415; 36416; 74177; 80053; 80306; 81001; 82962; 83690; 83735; 83880; 84443; 85025; 87077; 87086; 87186; 93005; 96374; 96375; 99285; J0696; J0780; J1200; J2405; J7030